=== PATIENT | male | born 1990 | race Caucasian/White ===

== ENCOUNTER 2019-03-07 02:27 | Emergency (ER) | payer MEDICAID ==
[~2019-03-07] VITALS: Ht 177.8 cm; Wt 90.9 kg
[2019-03-07 02:30] VITALS: Ht 177.8 cm; Wt 90.9 kg
[2019-03-07] MEDS ORDERED: ADDERALL XR 1010 M1 PO (02:32)
[2019-03-07 02:46] LABS: BASOPHILS 0.1 % (0-2); EOSINOPHILS 0.3 % (0-7); HEMATOCRIT 41.6 % (42.0-54.0); HEMOGLOBIN 14.4 g/dL (13.5-17.5); IMMATURE GRANULOCYTES 0.2 % (0-5); LYMPHOCYTES 18.7 % (15-50); MCH 31.9 pg (26.0-34.0); MCHC 34.6 g/dL (31.0-37.0); MCV 92.2 fL (80.0-100.0); MEAN PLATELET VOLUME 9.9 fL (7.4-10.4); MONOCYTES 7.3 % (2-11); NEUTROPHILS 73.4 % (40-80); PLATELET COUNT 281 10x3/uL (130-400); RBC 4.51 10x6/uL (4.20-6.10); RDW 12.7 % (11.5-14.5); WBC 17.8 10x3/uL (4.8-10.8)
[2019-03-07 03:00] LABS: ALBUMIN 3.9 g/dL (3.4-5.0); ANION GAP 18.6 mmol/L (8-16); BILIRUBIN - TOTAL 0.29 mg/dL (0.2-1.3); CALCIUM 8.3 mg/dL (8.5-10.1); CARBON DIOXIDE 21.5 mmol/L (21.0-32.0); CREATININE - SERUM 1.4 mg/dL (0.6-1.3); POTASSIUM - SERUM 3.1 mmol/L (3.5-5.1); PROTEIN - SERUM 7.3 g/dL (6.4-8.2)
[2019-03-07] MEDS ORDERED: KEFLEX500 MG PO (05:22)
[2019-03-07 05:58] VITALS: BP 136/75
== END 2019-03-07 05:58 ==
LOC: D.ER 02:27
PROVIDERS: Family Medicine
DX: S01.412A Laceration without foreign body of left cheek and temporomandibular area, initial encounter (principal); S81.811A Laceration without foreign body, right lower leg, initial encounter; S81.812A Laceration without foreign body, left lower leg, initial encounter; S41.111A Laceration without foreign body of right upper arm, initial encounter; S31.114A Laceration without foreign body of abdominal wall, left lower quadrant without penetration into peritoneal cavity, initial encounter; X99.1XXA Assault by knife, initial encounter